=== PATIENT | female | born 1980 | race Caucasian/White ===

== ENCOUNTER 2020-09-02 15:56 | Emergency (ER) | payer BC ==
[~2020-09-02] VITALS: Ht 157.5 cm; Wt 107.0 kg
--- NOTE | 2020-09-02 16:09 | NUR ---
PT TO ROOM 35 W/ C/O BILAT FLANK PAIN AND LOWER BILAT PELVIC PAIN STARTED YESTERDAY AROUND 1730. PT STATES SHE HAS ALSO HAD PINK DISCHARGE AND THOUGHT SHE MIGHT BE HAVING A PERIOD POST MENOPAUSE. PT RESTING ON GURNEY. NADN. MONITORS APPLIED. PIV INITIATED. WARM BLANKET PROVIDED.
[2020-09-02] MEDS ORDERED: ONDANSETRON 2MG/ML, 2ML ONE (17:30)
[2020-09-02] MEDS ORDERED: MORPHINE SULFATE 4 MG/ML, 1ML ONE ×2 (17:30→19:11)
[2020-09-02] MEDS ORDERED: ONDANSETRON 2MG/ML, 2ML IVPush ONE (17:30)
[2020-09-02] MEDS ORDERED: SODIUM CHLORIDE FLUSH 10ML SYR IVF ONE (17:30)
--- NOTE | 2020-09-02 17:30 | NUR ---
PT RESTING ON GURNEY. NADN. RODRIGUEZ.
[2020-09-02] MEDS: MORPHINE SULFATE 4 MG/ML, 1ML IVPush PRN ×2 (17:33→19:13)
[2020-09-02 17:49] LABS: BASOPHILS % (AUTO) 1 % (0-1); EOSINOPHILS % (AUTO) 2 % (1-7); LYMPHOCYTES % (AUTO) 27 % (22-44); MEAN CORPUSCULAR HGB CONC 34.4 g/dL (32.4-35.8); MEAN PLATELET VOLUME 8.2 fL (7.4-10.4); MONOCYTES % (AUTO) 8 % (2-9); NEUTROPHILS % (AUTO) 63 % (42-75); PLATELET COUNT 364 x10^3/uL (130-400); RED BLOOD COUNT 4.71 x10^6/uL (3.82-5.3)
[2020-09-02 17:53] LABS: MD NO
[2020-09-02 17:59] LABS: MICROSCOPIC INDICATED
[2020-09-02 18:01] LABS: ALANINE AMINOTRANSFERASE 44 U/L (12-78); ALBUMIN 3.5 g/dL (3.4-5.0); ANION GAP 7 mmol/L (5-15); CALCIUM 8.2 mg/dL (8.5-10.1); CHLORIDE 110 mmol/L (98-107); CREATININE 0.84 mg/dL (0.55-1.02)
[2020-09-02 18:05] LABS: ALKALINE PHOSPHATASE 50 U/L (45-117); BILIRUBIN,TOTAL 0.3 mg/dL (0.2-1.0); TOTAL PROTEIN 7.5 g/dL (6.4-8.2)
--- NOTE | 2020-09-02 18:30 | NUR ---
PT RESTING ON GURNEY. NADN. RODRIGUEZ.
[2020-09-02 19:10] VITALS: BP 153/98
--- NOTE | 2020-09-02 19:10 | NUR ---
PT RESTING ON GURNEY. NADN. RODRIGUEZ.
--- NOTE | 2020-09-02 19:30 | NUR ---
PT REQUESTING US FOR LOWER PELVIC ABD PAIN. SPOKE W/ ERP DR. TONY IN REGARDS TO THIS WHO STATES PT HAD A TUBAL LIGATION, ABLATION, AND IS NOT AND THEREFORE NO NEED FOR US. PT NOTIFIED.
== END 2020-09-02 19:42 | disposition home or self-care (01) ==
LOC: ED 19:15
DX: R10.9 Unspecified abdominal pain (principal); R19.7 Diarrhea, unspecified; R11.0 Nausea; Z76.0 Encounter for issue of repeat prescription
CPT/HCPCS: 36415; 80053; 81001; 84703; 85025; 87086; 96374; 96375; 96376; 99285; J2270; J2405; 87147